=== PATIENT | female | born 1960 | race Caucasian/White ===

== ENCOUNTER 2018-11-12 23:27 | Emergency (ER) | payer OTHER ==
[2018-11-12 23:37] VITALS: TEMP 97.8; BMI 41.3
--- NOTE | 2018-11-12 23:52 | PDOC ---
History of Present Illness - General History Source: Patient Exam Limitations: No Limitations - History of Present Illness Initial Comments: 11/12/18 23:46 Patient is a 58 year old female with h/o WHITE, CAD, cardiac stent, HTN, hypothyroid, fibromyalia c/o WHITE frontal and occipital since this morning. She states she woke up with the headache, was mild initially but progressively worsened throughout the day. Patient describes the pain as a stabbing in the frontal and a pressure in the occipital 6/10 which is associated with photophobia, phonophobia, nausea. Patient states she has had similar headaches in the past but never this severe. Usullay WHITE could last for a day at times. Patient took Tylenol 500mg x 3 tabs at midday and Motrin 200 mg x 2 tabs at 8 PM. Denies any fever, chills, neck stiffness. PMD: Dr. Bryan Deshpande PMHX: As above PSOCHX: neg etoh, drug, cig ALL: NKDA GENERAL/CONSTITUTIONAL: No fever or chills. No weakness. No weight change. HEAD, EYES, EARS, NOSE AND THROAT: No change in vision. No ear pain or discharge. No sore throat. CARDIOVASCULAR: No chest pain or shortness of breath. RESPIRATORY: No cough, wheezing, or hemoptysis. GASTROINTESTINAL: No nausea, vomiting, diarrhea or constipation. No rectal bleeding. GENITOURINARY: No dysuria, frequency, or change in urination. MUSCULOSKELETAL: (+) joint or muscle swelling or pain. No neck or back pain. SKIN AND BREASTS: No rash or easy bruising. NEUROLOGIC: No headache, vertigo, loss of consciousness, or loss of sensation. PSYCHIATRIC: No depression or anxiety. ENDOCRINE: No increased thirst. No abnormal weight change. HEMATOLOGIC/LYMPHATIC: No anemia, easy bleeding, or history of blood clots. ALLERGIC/IMMUNOLOGIC: No hives or skin allergy. No latex allergy. GENERAL: The patient is awake, alert, and fully oriented, in acute distress, shielding the eyes. HEAD: Normal with no signs of trauma. EYES: Pupils equal, round and reactive to light, extraocular movements intact, sclera anicteric, conjunctiva clear. ENT: Ears normal, nares patent, oropharynx clear without exudates. Moist mucous membranes. NECK: Normal range of motion, supple without lymphadenopathy, JVD, or masses. LUNGS: Breath sounds equal, clear to auscultation bilaterally. No wheezes, and no crackles. HEART: Regular rate and rhythm, normal S1 and S2 without murmur, rub. ABDOMEN: Soft, nontender, normoactive bowel sounds. No guarding, no rebound. No masses. EXTREMITIES: Normal range of motion, no edema. No clubbing or cyanosis. No cords, erythema, or tenderness. NEUROLOGICAL: Cranial nerves II through XII grossly intact. Normal speech, normal gait. PSYCH: Normal mood, normal affect. SKIN: Warm, Dry, normal turgor, no rashes or lesions noted. <Emir Warren - Last Filed: 11/13/18 04:55> <Estrella Dale - Last Filed: 11/14/18 09:34> - General Chief Complaint: Headache Stated Complaint: HEADACHE Past History - Past Medical History HTN: Yes - Surgical History Cardiac Surgery: Yes Neurologic Surgery: Yes (MVD) - Suicide/Smoking/Psychosocial Hx Smoking History: Unknown if ever smoked Hx Alcohol Use: No Drug/Substance Use Hx: No Substance Use Type: None <Emir Warren - Last Filed: 11/13/18 04:55> <Estrella Dale - Last Filed: 11/14/18 09:34> - Past Medical History Allergies/Adverse Reactions: Allergies Allergy/AdvReac Type Severity Reaction Status Date / Time No Known Allergies Allergy Verified 02/12/16 12:17 Home Medications: Ambulatory Orders Atorvastatin Ca [Lipitor] 20 mg PO DAILY 02/12/16 Levothyroxine [Synthroid -] 137 mcg PO DAILY 02/12/16 Olmesartan/Hydrochlorothiazide [Benicar Hct 40-12.5 mg Tablet] 1 each PO DAILY 02/12/16 Pregabalin [Lyrica] 25 mg PO DAILY 02/12/16 Acetaminophen [Tylenol .Regular Strength -] 650 mg PO Q6H PRN #0 tablet Aspirin [ASA -] 81 mg PO DAILY tab.chew 02/13/16 Atorvastatin Ca [Lipitor] 20 mg PO HS tablet 02/13/16 Levothyroxine [Synthroid -] 137 mcg PO DAILY@0700 tablet 02/13/16 Levothyroxine [Synthroid -] 137 mcg PO DAILY@0700 tablet 02/13/16 *Physical Exam - Vital Signs Last Vital Signs Temp Pulse Resp BP Pulse Ox 97.8 F 77 20 174/91 H 95 11/12/18 23:33 11/12/18 23:33 11/12/18 23:33 11/12/18 23:33 11/12/18 23:33 <Emir Warren - Last Filed: 11/13/18 04:55> - Vital Signs Last Vital Signs Temp Pulse Resp BP Pulse Ox 97.8 F 64 18 140/83 100 11/12/18 23:33 11/13/18 03:35 11/13/18 03:35 11/13/18 03:35 11/13/18 03:35 <Estrella Dale - Last Filed: 11/14/18 09:34> ED Treatment Course - Medications Given in the ED: ED Medications Discontinued Medications Generic Name Dose Route Start Last Admin Trade Name Zayq PRN Reason Stop Dose Admin Acetaminophen 1,000 mg 11/12/18 23:59 11/13/18 00:21 Ofirmev Injection - IVPB 11/13/18 00:00 1,000 mg ONCE ONE Administration Diazepam 5 mg 11/13/18 01:36 11/13/18 02:54 Valium - PO 11/13/18 01:37 5 mg ONCE ONE Administration Diphenhydramine HCl 25 mg 11/12/18 23:59 11/13/18 00:21 Benadryl Injection - IVPUSH 11/13/18 00:00 25 mg ONCE ONE Administration Ketorolac Tromethamine 30 mg 11/13/18 01:36 11/13/18 02:54 Toradol Injection - IVPUSH 11/13/18 01:37 30 mg ONCE ONE Administration Metoclopramide HCl 10 mg 11/12/18 23:59 11/13/18 00:21 Reglan Injection - IVPUSH 11/13/18 00:00 10 mg ONCE ONE Administration Sodium Chloride 1,000 ml 11/12/18 23:59 11/13/18 00:21 Normal Saline - IV 11/13/18 00:00 1,000 ml ONCE ONE Administration <Estrella Dale - Last Filed: 11/14/18 09:34> Medical Decision Making - Medical Decision Making 11/12/18 23:46 Patient is a 58 year old female with h/o WHITE, CAD, cardiac stent, HTN, hypothyroid, fibromyalia c/o WHITE frontal and occipital since this morning. She states she woke up with the headache, was mild initially but progressively worsened throughout the day. Patient describes the pain as a stabbing in the frontal and a pressure in the occipital 6/10 which is associated with photophobia, phonophobia, nausea. Patient states she has had similar headaches in the past but never this severe. Usullay WHITE could last for a day at times. Patient took Tylenol 500mg x 3 tabs at midday and Motrin 200 mg x 2 tabs at 8 PM. Denies any fever, chills, neck stiffness. Symptoms consistent with migraine headache will treat symptomatically Tylenol IV, Benadryl IV, Reglan IV, IV fluids. Patient feels improved but states that she still has a pressure pain in the occiput area will give Valium 5 mg by mouth and Toradol 30 mg IV 11/13/18 03:19 Patient states feeling improved and would like to go home. 11/12/18 23:46 Patient is a 58 year old female with h/o WHITE, CAD, cardiac stent, HTN, hypothyroid, fibromyalia c/o WHITE frontal and occipital since this morning. She states she woke up with the headache, was mild initially but progressively worsened throughout the day. Patient describes the pain as a stabbing in the frontal and a pressure in the occipital 6/10 which is associated with photophobia, phonophobia, nausea. Patient states she has had similar headaches in the past but never this severe. Usullay WHITE could last for a day at times. Patient took Tylenol 500mg x 3 tabs at midday and Motrin 200 mg x 2 tabs at 8 PM. Denies any fever, chills, neck stiffness. I discussed the physical exam findings, ancillary test results and final diagnoses with the patient. I answered all of the patient's questions. The patient was satisfied with the care received and felt comfortable with the discharge plan and treatment plan. The Patient agrees to follow up with the primary care physician within 24-72 hours. <Emir Warren - Last Filed: 11/13/18 04:55> *DC/Admit/Observation/Transfer <Dana Warren - Last Filed: 11/13/18 04:55> - Attestations Physician Attestion: I reviewed the case with the mid-level practitioner and agree with the mid- level practitioner's assessment, diagnosis and disposition. <Estrella Dale - Last Filed: 11/14/18 09:34> Diagnosis at time of Disposition: Migraine headache Qualifiers: Migraine type: unspecified Status migrainosus presence: without status migrainosus Intractability: not intractable Qualified Code(s): G43.909 - Migraine, unspecified, not intractable, without status migrainosus - Discharge Dispostion Disposition: HOME Condition at time of disposition: Stable - Referrals Referrals: Bryan Bella [Primary Care Provider] - - Patient Instructions Printed Discharge Instructions: DI for Migraine Additional Instructions: Your Discharge Instructions: You must call primary care physician within 24 hours to arrange follow-up. Return to the Emergency Department with any new, persistent or worsening symptoms, for fever, chills, SOB, dizziness or any other concerning changes that may occur. - Post Discharge Activity
[2018-11-12] MEDS ORDERED: METOCLOPRAMIDE HCL INJECTION 10 MG/2 ML VIAL IVPUSH ONE (23:59)
[2018-11-12] MEDS ORDERED: ACETAMINOPHEN 1000 MG/100 ML VIAL (NON FORMULARY) IVPB ONE (23:59)
[2018-11-12] MEDS ORDERED: SODIUM CHLORIDE 0.9% 500 ML INFUS.BAG IV ONE (23:59)
[2018-11-13] MEDS ORDERED: METOCLOPRAMIDE HCL INJECTION 10 MG/2 ML VIAL ONE (00:07)
[2018-11-13] MEDS ORDERED: ACETAMINOPHEN INJECTION 100 ML IVPB ONE (00:08)
[2018-11-13] MEDS ORDERED: KETOROLAC TROMETHAMINE 30 MG/1 ML VIAL IVPUSH ONE (01:36)
[2018-11-13] MEDS ORDERED: diazePAM 5 MG TABLET PO ONE (01:36)
[2018-11-13] MEDS ORDERED: KETOROLAC TROMETHAMINE 30 MG/1 ML VIAL ONE (02:51)
[2018-11-13] MEDS ORDERED: diazePAM 5 MG TABLET ONE (02:51)
[2018-11-13 03:36] VITALS: BP 140/83; PULSE 64
== END 2018-11-13 03:36 | disposition home or self-care (01) ==
LOC: JER 23:27
PROC: 3E033NZ Introduction of Analgesics, Hypnotics, Sedatives into Peripheral Vein, Percutaneous Approach (ICD-10-PCS; principal; 2018-11-12)
PROC: 3E0333Z Introduction of Anti-inflammatory into Peripheral Vein, Percutaneous Approach (ICD-10-PCS; 2018-11-12)
PROC: 3E033GC Introduction of Other Therapeutic Substance into Peripheral Vein, Percutaneous Approach (ICD-10-PCS; 2018-11-12)
PROC: 3E033GC Introduction of Other Therapeutic Substance into Peripheral Vein, Percutaneous Approach (ICD-10-PCS; 2018-11-12)
DX: G43.909 Migraine, unspecified, not intractable, without status migrainosus (principal); I25.10 Atherosclerotic heart disease of native coronary artery without angina pectoris; I10 Essential (primary) hypertension; Z95.5 Presence of coronary angioplasty implant and graft; E03.9 Hypothyroidism, unspecified; M79.7 Fibromyalgia
CPT/HCPCS: 96374; 96375; 99282-25; J0131

== ENCOUNTER 2021-04-27 17:44 | Emergency (ER) | payer OTHER ==
[2021-04-27 17:52] VITALS: BP 156/93; PULSE 100; TEMP 97; BMI 40.9
== END 2021-04-27 19:38 | disposition home or self-care (01) ==
LOC: JERFT 17:44
DX: S61.201A Unspecified open wound of left index finger without damage to nail, initial encounter (principal); W26.8XXA Contact with other sharp object(s), not elsewhere classified, initial encounter
CPT/HCPCS: 99281-25

== ENCOUNTER 2021-05-02 09:16 | Emergency (ER) | payer OTHER ==
[2021-05-02 09:35] VITALS: BP 139/89; PULSE 89; TEMP 98.2; BMI 39.6
== END 2021-05-02 10:07 | disposition home or self-care (01) ==
LOC: JERFT 09:16 → JER 09:16 → JERFT 10:07
DX: Z48.02 Encounter for removal of sutures (principal)
CPT/HCPCS: 99281-25